=== PATIENT | male | born 1940 | race Caucasian/White ===

== ENCOUNTER → 2020-04-01 | Outpatient (CLI) | payer OTHER ==
[~2020-04-01] MED LIST: APAP650 PO; ASPIR 8181 MG PO; ATIVAN1 MG PO; AZITHROMYCIN500 M3 IVPB; CARDIZEM30 MG PO; COLACE100 MG PO; GABAPENTIN 100100 MG PO; GLUCOTROL XL10 MG PO; GLUCOTROL5 MG PO; HYDROCODONE-APA1 TA1 PO; LASIX 40 MG TAB40 M2 PO; LEVAQUIN 500 M500 M2 PO; LOPRESSOR25 PO; PRADAXA150 MG PO; PROAIR HFA8.5 GM INH; RESTORIL15 MG PO; RESTORIL30 MG PO; SIMVASTATIN40 MG PO; SOLU-MEDRO125 MG/24 INJECTION; TOPROL XL25 MG PO; TORADOL 10 MG T10 MG PO; ZANTAC 150MG T150 MG PO
== END ==
LOC: SJCVC 12:56
PROVIDERS: ATTEND Nuclear Medicine Nuclear Cardiology
DX: I71.4 Abdominal aortic aneurysm, without rupture (principal); I48.91 Unspecified atrial fibrillation; I10 Essential (primary) hypertension; E11.9 Type 2 diabetes mellitus without complications; C4A.72 Merkel cell carcinoma of left lower limb, including hip; I25.10 Atherosclerotic heart disease of native coronary artery without angina pectoris; Z95.0 Presence of cardiac pacemaker; Z95.5 Presence of coronary angioplasty implant and graft; Z72.0 Tobacco use; Z79.899 Other long term (current) drug therapy

== ENCOUNTER → 2020-04-09 | Outpatient (CLI) | payer OTHER ==
[~2020-04-09] VITALS: Ht 170.2 cm; Wt 79.0 kg
[~2020-04-09] MED LIST changes: +ATIVAN1 M1 PO; -ATIVAN1 MG PO; +BACLOFEN 10MG T10 MG PO; +BENADRYL25 MG PO; +EFUDEX40 GM TOP; +HUMALOG100 UNIT/1 SUBQ; +LEVEMIR100 UNIT/1 SUBQ; +LIPITOR40 MG PO; +LISINOPRIL10 MG PO; +MUPIROCIN22 GM NARES; +ONE-DAILY MULT1 EAC1 PO; +PREDNISONE 20 M20 MG PO; +PROTONIX40 M2 PO; +SEROQUEL 100 M100 M1 PO; +TRAMADOL 50 MG50 MG PO; +WARFARIN SODIUM3 MG PO; +WARFARIN SODIUM6 MG PO
[2020-04-09 08:31] VITALS: BP 131/78
[2020-04-09 08:41] LABS: HEMATOCRIT 55.2 % (42.0-52.0); HEMOGLOBIN 18.2 gm/dL (14.0-18.0); MCH 32.5 pg (26.0-34.0); MCV 98.5 fL (80.0-100.0); RBC 5.6 mil/uL (4.50-6.00); RDW 15.1 % (10.5-14.5); WBC 8.4 thou/uL (4.0-11.0)
[2020-04-09 08:53] LABS: CALCIUM 9.7 mg/dL (8.5-10.1); CREATININE 1.4 mg/dL (0.7-1.3); POTASSIUM 4.9 mmol/L (3.5-5.1)
[2020-04-09 09:18] LABS: INR 1.2; PROTIME 11.8 Seconds (9.3-11.4)
[2020-04-09 09:32] LABS: ABSOLUTE NEUTROPHILS 5.1 thou/uL (1.4-8.2); BASOPHILS 0.7 % (0.0-2.0); EOSINOPHILS 1.8 % (0.0-3.0); HEMATOCRIT 53.9 % (42.0-52.0); HEMOGLOBIN 18.1 gm/dL (14.0-18.0); LYMPHOCYTES 26.7 % (24.0-44.0); MCH 32.8 pg (26.0-34.0); MCHC 33.6 g/dL (28.0-37.0); MCV 97.7 fL (80.0-100.0); MONOCYTES 6.8 % (1.0-8.0); PLATELET COUNT 143 thou/uL (150-400); RBC 5.52 mil/uL (4.50-6.00); RDW 15.3 % (10.5-14.5); WBC 7.9 thou/uL (4.0-11.0)
[2020-04-09 09:59] LABS: ALBUMIN 3.6 g/dL (3.4-5.0); CALCIUM 9.5 mg/dL (8.5-10.1); CREATININE 1.5 mg/dL (0.7-1.3); POTASSIUM 5.1 mmol/L (3.5-5.1); TOTAL BILIRUBIN 0.9 mg/dL (0.2-1.0); TOTAL PROTEIN 7.4 g/dL (6.4-8.2)
[2020-04-09 16:20] LABS: URINE BILIRUBIN NEGATIVE (Negative); URINE BLOOD NEGATIVE (Negative); URINE CLARITY CLEAR; URINE COLOR YELLOW; URINE GLUCOSE-RANDOM* NEGATIVE (Negative); URINE KETONES NEGATIVE (Negative); URINE LEUKOCYTES-REFLEX NEGATIVE (Negative); URINE NITRITE-REFLEX NEGATIVE (Negative); URINE PROTEIN (DIPSTICK) NEGATIVE (Negative); URINE UROBILINOGEN 0.2 E.U./dl (0.2-1.0)
[2020-04-10 03:06] LABS: GLYCOHEMOGLOBIN (HGB A1C) 5.8 % (4.8-5.6)
--- NOTE | 2020-04-17 11:22 | EKG ---
[facility] [place] [address] [address] [place] [address] ELECTROCARDIOGRAM REPORT Name: JAYSON PATEL Room #: [facility]#: [id number] Admission: 04/09/20 Attend Phys: Zaki Kay MD Discharge: Date of : 39 Report #: [id number] THIS REPORT FOR: cc: Vidal Velez James DO Santiago, Patrick MD [facility] ~ THIS REPORT FOR: //name// [facility] Test Date: 2020-04-09 Test Time: 08:59:39 Pat Name: JAYSON PATEL Department: Room: Gender: Chronic Disease Epidemiologist: [facility] : 1940 Requested By: Giorgio Win Order Number: [id number] : Inocencio Ruggiero Measurements Intervals [place] Rate: 82 P: FL: QRS: -51 QRSD: 135 T: 119 QT: 463 QTc: 541 Interpretive Statements Atrial flutter Nonspecific IVCD with LAD Baseline wander in lead(s) II,III,aVF,V3,V5 Compared to ECG 05/18/2014 08:12:45 Intraventricular conduction delay now present ST (T wave) deviation now present Sinus rhythm no longer present AV dual-paced complex(es) or rhythm no longer present Electronically Signed On 04-09-2020 9:04:01 DIRECTOR OF QUALITY by Inocencio Ruggiero [email or web address] <ELECTRONICALLY SIGNED> By: Inocencio Ruggiero MD, [facility] 04/09/20903 8 8 Inocencio Ruggiero MD, [facility] /EPI
== END | disposition home or self-care (01) ==
LOC: CATH 07:41
PROVIDERS: Physician Assistant; Surgery Vascular Surgery; ATTEND Nuclear Medicine Nuclear Cardiology
DX: I71.4 Abdominal aortic aneurysm, without rupture (principal); I70.1 Atherosclerosis of renal artery; I11.0 Hypertensive heart disease with heart failure; I50.9 Heart failure, unspecified; I48.91 Unspecified atrial fibrillation; I42.9 Cardiomyopathy, unspecified; E11.9 Type 2 diabetes mellitus without complications; J44.9 Chronic obstructive pulmonary disease, unspecified; I25.10 Atherosclerotic heart disease of native coronary artery without angina pectoris; Z98.890 Other specified postprocedural states; Z79.899 Other long term (current) drug therapy; Z95.0 Presence of cardiac pacemaker; Z79.4 Long term (current) use of insulin; Z79.82 Long term (current) use of aspirin; Z79.01 Long term (current) use of anticoagulants; Z82.49 Family history of ischemic heart disease and other diseases of the circulatory system

== ENCOUNTER 2020-04-14 06:21 | Inpatient (IN) | payer OTHER ==
[~2020-04-14] VITALS: Ht 170.2 cm; Wt 76.2 kg
--- NOTE | ~2020-04-14 | O ---
[facility] [place] [address] [address] [place] [address] OPERATIVE REPORT Name: JAYSON PATEL Willem Room #: 250-P ADM IN M.R.#: [id number] Admission: 04/14/20 Attend Phys: Giorgio Win MD Discharge: Date of : 39 Report #: [id number] THIS REPORT FOR: cc: Vidal Velez James DO Forman,Giorgio Powers MD ~ DATE OF SERVICE: 04/14/2020 PREOPERATIVE DIAGNOSIS: Abdominal aortic aneurysm. POSTOPERATIVE DIAGNOSIS: Abdominal aortic aneurysm. OPERATION: Stent graft implant for treatment of infrarenal abdominal aortic aneurysm with intraoperative arteriograms. SURGEON: Giorgio Win MD. RADIOLOGIST: Dr. Zaki Kay. BONDERIZER: DAVID Mays. ANESTHESIA: General. INDICATIONS: The patient is an 79-year-old with an infrarenal abdominal aortic aneurysm that is 5 cm in size. The patient has atherosclerotic peripheral vascular disease as well. FINDINGS AND TECHNIQUE: After general anesthesia was established, incisions were made in both groins to expose the common deep and superficial femoral arteries. The femoral arteries were particularly atherosclerotic and calcified. On the right side, a pursestring was placed; and on the left side, a more traditional cutdown was employed. On each side, a needle was introduced into the femoral artery followed by guidewire and 6-Central African sheath was placed, long J wire was placed, and an exchange catheter was placed over the wire so that a Tavo wire can be placed. Over the Tavo wire, on the right side, a 12-Central African sheath was placed; and on the left side, through cutdown, a 16-Central African sheath was placed. Through the left side, a 26 x 12 x 18 main body component was placed. Through the right side, the renal arteries were accessed to better locate the place to position the graft. Renal arteries were identified angiographically and a guiding catheter was placed in the renal artery orifice. The main body was deployed and the contralateral gate was cannulated. A pigtail catheter was placed and the spin technique was used to ascertain good position [facility] [address] [place] [address] OPERATIVE REPORT Name: JAYSON PATEL Room #: 250-[facility] IN M.R.#: [id number] Admission: 04/14/20 Attend Phys: Giorgio Win MD Discharge: Date of : 39 Report #: [id number] in the contralateral gate. A retrograde arteriogram was taken through the sheath on the right side with the pigtail in place so that we could measure the distance to the hypogastric artery. A 16 x 11 limb was chosen and deployed in the contralateral gate just above the right hypogastric orifice. On the left side, the hypogastric was occluded and a 10 x 7 extension limb was placed for satisfactory coverage into the left iliac system. When all of the devices were placed, the compliant balloon was used to fully deploy the main body and set the proximal active fixation. The grafts were dilated throughout their length, particularly in the contralateral gate. When all of the grafts had been fully deployed and ironed out, a pigtail catheter was replaced and an arteriogram was taken. This showed good position of the graft below the renal arteries and no evidence of endoleak. Satisfied that the graft was in good position, dilators were placed over guidewires and into the sheaths and then the sheaths and then the guidewires themselves were removed; and on each side, the arteriotomies were closed with Prolene. Flow was reestablished and good pulses were ascertained. It should be mentioned that 10,000 units of heparin were given at the outset of the case. 1000 additional units were given at an hour's interval and then protamine was given to reverse the heparin at the end of the case. The patient tolerated the procedure well and was taken to the recovery area in good condition. All counts reported as correct. By: 1737 1803 Giorgio Win MD /nt
[2020-04-14 08:28] VITALS: BP 126/68
[2020-04-14 09:30] LABS: PROTIME 10.7 Seconds (9.3-11.4)
[2020-04-14 13:13] VITALS: BP 122/69
--- NOTE | 2020-04-14 13:50 | NUR ---
1310-RECEIVED PT FROM PACU VIA BED.PT AWAKE,APPROP.DENIES PAIN, JUST STATES BURNING BOTH GROINS.SITES SOFT BILAT, NO BLEEDING OR HEMATOMAS. LG AMT OLD BRUISING RT GROIN. GOOD DISTAL PULSES ARE PALP & MARKED.FEET WARM,TOES COOL.-VW 1330-DTR IN TO SEE FOR BRIEF VISIT, THEN LEFT FOR HOME.PT WATCHING TV. TAKING ICECHIPS W/O PROBLEMS. DOES NOT WANT ANYTHING ELSE AT THIS TIME.--VW
[2020-04-14 15:59] VITALS: BP 119/60
[2020-04-14 16:02] VITALS: BP 116/57
[2020-04-14 17:46] LABS: HEMATOCRIT 45.9 % (42.0-52.0); HEMOGLOBIN 15.3 gm/dL (14.0-18.0); MCH 32.3 pg (26.0-34.0); MCHC 33.3 g/dL (28.0-37.0); MCV 97.1 fL (80.0-100.0); RBC 4.73 mil/uL (4.50-6.00); RDW 14.7 % (10.5-14.5); WBC 13.8 thou/uL (4.0-11.0)
[2020-04-14 17:54] LABS: CALCIUM 8.7 mg/dL (8.5-10.1); CREATININE 1.3 mg/dL (0.7-1.3); POTASSIUM 4.6 mmol/L (3.5-5.1)
--- NOTE | 2020-04-15 04:42 | NUR ---
ASSUMED CARE OF PATIENT AT 1900. VSS, AFEBRILE. GROIN SITES C/D/I. NO S/S OF DISTRESS. CALLS OUT APPROPRIATELY. DOES NOT SLEEP MUCH. PROGRESSING TOWARDS POC GOALS
[2020-04-15 04:58] LABS: HEMATOCRIT 43.7 % (42.0-52.0); HEMOGLOBIN 14.4 gm/dL (14.0-18.0); MCH 31.9 pg (26.0-34.0); MCV 96.6 fL (80.0-100.0); RBC 4.53 mil/uL (4.50-6.00); RDW 14.9 % (10.5-14.5); WBC 12.4 thou/uL (4.0-11.0)
[2020-04-15 05:10] LABS: CALCIUM 8.3 mg/dL (8.5-10.1); CREATININE 1.2 mg/dL (0.7-1.3); POTASSIUM 4.4 mmol/L (3.5-5.1)
--- NOTE | 2020-04-15 10:40 | NUR ---
cm spk w/pt's , nilesh to completed initial assessment and intro to cm role. pt lives at home w/spouse in [facility] in [place]. pt has "home care worker" 4hr/day 3x/week. pt has 2 dtr, w/one that lives in [place], that are very supportive and assist w/errand and such as needed. cm to cont to follow.
--- NOTE | 2020-04-15 11:34 | NUR ---
PT IS PROGRESSING TOWARDS DISCHARGE, PER DAVID ROQUE PT IS OK'D TO GO HOME ONCE SEEN AMBULATING/URINATING S/P [facility] REMOVAL/ WELL TOLERATING PO. PT WAS AMBULATORY TO THE BATHROOM IN ROOM WITH RN MINIMAL ASSISTANCE/SET-UP. PT ALSO HAD A BM/URINATED NORMALLY S/P [facility] CATH REMOVAL. PT HAD A 8OZ OF GLUCERNA WELL 1/3 OF WAFFLE FROM BREAKFAST. WAS ABLE TO TOLERATE, NO COMPLAINTS OF N/V/D WILL COMMUNICATE TO DAVID ROQUE REGARDING THESE FINDINGS AND WILL MOVE FORTH TOWARDS DISCHARGE. PT IS PROGRESSING AT THIS TIME. VS ARE STABLE NO COMPLAINTS OF PAIN
[2020-04-15 13:52] VITALS: BP 116/57
== END 2020-04-15 14:10 | disposition home or self-care (01) | DRG 269 ==
LOC: TBA 06:21 → PRE 09:30 → ICU 13:15
PROVIDERS: Physician Assistant; ADMIT Surgery Vascular Surgery; ATTEND Surgery Vascular Surgery
PROC: 04V03DZ Restriction of Abdominal Aorta with Intraluminal Device, Percutaneous Approach (ICD-10-PCS; principal; 2020-04-14)
PROC: B418YZZ Fluoroscopy of Bilateral Renal Arteries using Other Contrast (ICD-10-PCS; principal; 2020-04-14)
DX: I71.4 Abdominal aortic aneurysm, without rupture (principal); I25.10 Atherosclerotic heart disease of native coronary artery without angina pectoris; N18.9 Chronic kidney disease, unspecified; E78.5 Hyperlipidemia, unspecified; I48.91 Unspecified atrial fibrillation; E11.22 Type 2 diabetes mellitus with diabetic chronic kidney disease; Z20.828 Contact with and (suspected) exposure to other viral communicable diseases; I12.9 Hypertensive chronic kidney disease with stage 1 through stage 4 chronic kidney disease, or unspecified chronic kidney disease; F17.210 Nicotine dependence, cigarettes, uncomplicated; C4A.72 Merkel cell carcinoma of left lower limb, including hip; Z95.5 Presence of coronary angioplasty implant and graft; Z95.0 Presence of cardiac pacemaker; Z91.041 Radiographic dye allergy status; Z79.899 Other long term (current) drug therapy; Z71.6 Tobacco abuse counseling
CPT/HCPCS: 10078; 47375; 50010; 50101; 50386; 50455; 51762; 52287; 54118; 56524; 56526; 56527; 56531; 56668; 56760; 57093; 57853; 57854; 57996; 58401; 58403; 58404; 62110; 62900; 65020; 65040; 70005

== ENCOUNTER → 2020-06-03 | Outpatient (CLI) | payer OTHER | LOC: SJCVC 08:29 | PROVIDERS: ATTEND Nuclear Medicine Nuclear Cardiology | DX: I11.9 Hypertensive heart disease without heart failure (principal); I71.4 Abdominal aortic aneurysm, without rupture; I25.10 Atherosclerotic heart disease of native coronary artery without angina pectoris; I48.91 Unspecified atrial fibrillation; E11.9 Type 2 diabetes mellitus without complications; F17.200 Nicotine dependence, unspecified, uncomplicated; Z95.5 Presence of coronary angioplasty implant and graft; Z95.0 Presence of cardiac pacemaker; Z72.0 Tobacco use; Z79.84 Long term (current) use of oral hypoglycemic drugs; Z79.899 Other long term (current) drug therapy; Z88.8 Allergy status to other drugs, medicaments and biological substances ==

== ENCOUNTER 2020-08-05 14:48 | Inpatient (IN) | payer OTHER ==
[2020-08-05] VITALS (63 sets, daily range): BP systolic 60–155; BP diastolic 37–80
[~2020-08-05] VITALS: Ht 182.9 cm; Wt 87.4 kg
--- NOTE | ~2020-08-05 | EEG ---
[facility] [place] [address] [place] [address] ELECTROENCEPHALOGRAM Name: JAYSON PATEL Room #: 240-P [facility] IN M.R.#: [id number] Admission: 08/05/20 Attend Phys: Sekou Hobbs MD Discharge: Date of : 39 Report #: [id number] THIS REPORT FOR: //name// DATE OF SERVICE: 08/11/2020 This patient is being evaluated for altered mental status. EEG was done by placing the electrode by standard 10-20 system of electrode placement. Both referential and sequential montages were used for recording. Background activity in this patient is a pretty disorganized and poorly formed. It appeared to be about 6 Hz and 15 microvolt. Photic stimulation is unremarkable. IMPRESSION: This is a severely abnormal EEG because it is disorganized and poorly formed. That is a nonspecific abnormality, which can occur with dementia, encephalopathy, effect of psychotropic medication, etc. Clinical correlation is recommended. By: 1324 1404 Steve Romeo MD /nt
--- NOTE | ~2020-08-05 | HC ---
[facility] [place] [address] CONSULTATION Name: AMANDAJAYSON Willem Room #: [facility]- ADM IN ..#: [id number] Admission: 08/05/20 Attend Phys: Sekou Hobbs MD Discharge: Date of : 39 Report #: [id number] THIS REPORT FOR: cc: Vidal Velez James DO Khosla,Steve Sandoval MD ~ DATE OF SERVICE: 08/11/2020 HISTORY OF PRESENT ILLNESS: This is an 79-year-old male patient who is unable to provide any history. The patient's eyes are open. He is on a vent. He just does not provide any history at all. That makes the evaluation very difficult. I reviewed the records in the computer and I had talked to the day nurse in this patient. It looks like this patient has multiple metabolic problems including a hypoperfusion to the brain because of hypotension. Multiple consultants are involved in this patient's care. He was transported here from [facility]. The patient apparently went to [facility] with altered mental status and hypotension. He recently had a hip surgery. Records indicate that in April, he had aortic aneurysm surgery. One of the records indicate that he has a pacemaker put in. I do not know if that is compatible with MRI or not. He appeared to be in septic shock. This patient has multiple other systemic problems, which include hypoxemia. He is on heparin. He has atrial fibrillation as well as DVT. REVIEW OF SYSTEMS: A 14-point review of system was carried out and looks like this patient has numerous medical issues. It looks like he has history of diabetes, hypertension, atrial fibrillation, COPD, AAA repair, history of GI bleed, skin cancer, colonoscopy, depression, TIA. He also has multiple issues going on at this time and he is not waking up. This was a relevant 14-point review of system. PAST MEDICAL HISTORY: Positive for hip surgery and AAA repair. FAMILY HISTORY: Unavailable, but the best I can tell from the record, it does not look like there is a family history of early strokes. SOCIAL HISTORY: According to the record, he has a history of smoking, but does not drink alcohol. PHYSICAL EXAMINATION: Indicates he opens his eyes when I asked him to close his eyes, he does not do that. When asked him to move his eyes in multiple directions, he does not do that. He does not appear to have meningeal sign, it looks like one time he moved his toes when I asked him to do that, but I am not certain. Rest of the examination was attempted, but it is almost impossible. His blood pressure is 123/58, pulse rate is 73, temperature is 98. [facility] [address] [place] [address] CONSULTATION Name: JAYSON PATEL Room #: 240-P [facility] IN ..#: [id number] Admission: 08/05/20 Attend Phys: Sekou Hobbs MD Discharge: Date of : 39 Report #: [id number] LABORATORY DATA: He did have a CT scan of the head done and that was done to make sure there is no bleeding because this patient was on heparin. There is no bleeding there. IMPRESSION: This patient appeared to have encephalopathy because of multiple problems. Whether he also had a stroke in addition to that, it is difficult to ___. We need to find out if his pacemaker is compatible with MRI and if it is, then MRI will be the best test to do on him. If not, we can continue to support and I will look at the EEG and discuss the patient with you tomorrow. Thank you very much for this referral. By: 1959 0006 Steve Romeo MD /nt
[2020-08-05 17:31] LABS: BE(vivo) -3.7 mmol/L (-2 to +3); HCO3 23.8 mmol/L (22.0-26.0); PCO2 54.1 mmHg (35.0-45.0); PO2 103.7 mmHg (80.0-100.0); sO2 96.9 % (92.0-98.0)
[2020-08-05 17:32] LABS: pH 7.262 (7.360-7.450)
--- NOTE | 2020-08-05 18:17 | NUR ---
5FRTL IJ PLACED RT SIDE, CXR REVEALED THE TIP AT THE CAJ.
[2020-08-05 18:29] LABS: ABSOLUTE NEUTROPHILS 8.5 thou/uL (1.4-8.2); BASOPHILS 0.3 % (0.0-2.0); EOSINOPHILS 0.1 % (0.0-3.0); HEMATOCRIT 36.6 % (42.0-52.0); HEMOGLOBIN 11.8 gm/dL (14.0-18.0); LYMPHOCYTES 13.5 % (24.0-44.0); MCH 32.8 pg (26.0-34.0); MCHC 32.2 g/dL (28.0-37.0); MCV 101.8 fL (80.0-100.0); MONOCYTES 6.7 % (1.0-8.0); PLATELET COUNT 243 thou/uL (150-400); POLYS 79.4 % (36.0-66.0); RDW 18.8 % (10.5-14.5); WBC 10.7 thou/uL (4.0-11.0)
[2020-08-05 18:37] LABS: CREATININE 1.6 mg/dL (0.7-1.3); POTASSIUM 3.4 mmol/L (3.5-5.1)
[2020-08-05 18:42] LABS: ALBUMIN 2.4 g/dL (3.4-5.0); TOTAL BILIRUBIN 1.5 mg/dL (0.2-1.0); TOTAL PROTEIN 5.9 g/dL (6.4-8.2)
[2020-08-05 19:08] LABS: APTT 56.5 Seconds (24.5-32.8); INR 1.87; PROTIME 19.8 Seconds (9.3-11.4)
--- NOTE | 2020-08-05 19:23 | 2DMMODE ---
[facility] [place] [address] [place] [address] 2 D/M-MODE ECHOCARDIOGRAM Name: JAYSON PATEL Room #: 240-P ADM IN M.R.#: [id number] Admission: 08/05/20 Attend Phys: Sekou Hobbs MD Discharge: Date of : 39 Report #: [id number] THIS REPORT FOR: cc: Vidal Velez James DO Lammoglia, Francisco J. MD ~ APPROVED REPORT Study performed: 08/05/2020 18:40:17 EXAM: Limited 2D, Doppler, and color-flow Echocardiogram Patient Location: ICU Room #: 240 Status: on-call BSA: 1.99 HR: 83 bpm BP: 116/63 mmHg Other Information Study Quality: Technically Difficult Technically limited study due to lung disease, inability to position patient. Indications COPD Atrial Fibrillation Pacemaker CAD Elevated Troponin Shock, hip repair 07/01/2020 2D Dimensions RVDd: 37.59 mm IVSd: 11.45 (7-11mm) LVDd: 40.71 mm PWd: 10.64 (7-11mm) LVDs: 30.48 (25-40mm) IVC: 17.00 mm Aortic Valve AoV Peak Get[place]w.: 1.59 m/s AO Peak Gr.: 10.11 mmHg Tricuspid Valve TR Peak Getachew.: 3.27 m/s RAP Estimate: 10.00 mmHg [facility] [address] [place] [address] 2 D/M-MODE ECHOCARDIOGRAM Name: AMANDAJAYSON Willem Room #: 240-P ADM IN .R.#: [id number] Admission: 08/05/20 Attend Phys: Myke Small Discharge: Date of : 39 Report #: [id number] Peak Gr.: 42.82 mmHg PA Pressure: 53.00 mmHg Left Ventricle The left ventricle is normal size. Borderline concentric left ventricular hypertrophy. The left ventricular systolic function is normal. The left ventricular ejection fraction is within the normal range. LVEF is 55-60%. Right Ventricle Right ventricle is at the upper limits of normal. Right ventricle is hypokinetic. Aortic Valve The aortic valve is normal in structure. No aortic regurgitation is present. There is no aortic valvular stenosis. Mitral Valve The mitral valve is normal in structure. There is no mitral valve regurgitation noted. Tricuspid Valve The tricuspid valve is normal in structure. Mild tricuspid regurgitation. PAP is estimated at 53 mmHg. Pulmonic Valve Pulmonic valve is not well visualized. Great Vessels The aortic root is normal in size. IVC is normal in size and collapses <50% with inspiration. Pericardium There is no pericardial effusion. <Conclusion> The left ventricle is normal size. LVEF is 55-60%. Right ventricle is at the upper limits of normal. Right ventricle is hypokinetic. The aortic valve is normal in structure. The mitral valve is normal in structure. Pulmonic valve is not well visualized. [facility] [place] [address] 2 D/M-MODE ECHOCARDIOGRAM Name: JAYSON PATEL Room #: 240-P ADM IN ..#: [id number] Admission: 08/05/20 Attend Phys: Myke Small Discharge: Date of : 39 Report #: [id number] The aortic root is normal in size. There is no pericardial effusion. <ELECTRONICALLY SIGNED> By: Ismael Arredondo MD 08/05/201921 21 21 Ismael Arredondo MD /INF
[2020-08-05 19:34] LABS: BE(vivo) -2.4 mmol/L (-2 to +3); HCO3 24.7 mmol/L (22.0-26.0); pH 7.294 (7.360-7.450); sO2 79.9 % (92.0-98.0)
[2020-08-05 19:55] LABS: URINE BILIRUBIN NEGATIVE (Negative); URINE BLOOD 1+ (Negative); URINE CLARITY CLEAR; URINE COLOR YELLOW; URINE GLUCOSE-RANDOM* NEGATIVE (Negative); URINE KETONES NEGATIVE (Negative); URINE LEUKOCYTES-REFLEX NEGATIVE (Negative); URINE NITRITE-REFLEX NEGATIVE (Negative); URINE PROTEIN (DIPSTICK) NEGATIVE (Negative); URINE SPECIFIC GRAVITY 1.025 (1.005-1.035)
[2020-08-05 20:06] LABS: HYALINE CASTS 4-10 Moderate /LPF (None Seen); MUCUS 4-6 Moderate strn/LPF (None Seen); SQUAMOUS 4-10 Moderate /LPF (0-3)
--- NOTE | 2020-08-05 20:07 | NUR ---
1530 NOTIIED ISIDRO OF DIRECT ADMIT. CARDIOLOGY PAIGED 1540. RECIEVED CALL FROM EMS 1635 PT BECOMING LESS RESPONSIVE AND ARE 10 MINS AWAY. ARRIVED TO FLOOR 1700. ORIENTED TO SELF AND PLACE, FOLLOWING COMMANDS.. REQUIRING PRESSORS. ISIDRO BOOGIE, AND CARDIOLOGY NOTIFIED.. LEVO, DOPAMINE, AND HEPARIN GTT RESUMED. PT BECIMING INCREASINGLY OBTUNDED AND LETHARGIC. NEW ABG OBTAINED. ISIDRO NOTIFIED. PREPARING TO INTUBATE.
[2020-08-05 20:14] LABS: CRYSTALS None Seen /LPF (None Seen)
[2020-08-05 20:15] LABS: URINE RBC 0-2 Rare /HPF (0-2); URINE WBC-REFLEX 0-5 Rare /HPF (0-5)
[2020-08-05 23:07] LABS: BE(vivo) -2.7 mmol/L (-2 to +3); HCO3 23.5 mmol/L (22.0-26.0); PCO2 46.3 mmHg (35.0-45.0); PO2 264.2 mmHg (80.0-100.0); pH 7.324 (7.360-7.450); sO2 99.6 % (92.0-98.0)
[2020-08-06] VITALS (45 sets, daily range): BP systolic 79–126; BP diastolic 41–71
[2020-08-06] MEDS ORDERED: LANTUS SUBQ (01:38)
[2020-08-06] MEDS ORDERED: PROAIR HFA8.5 GM INH (01:43)
[2020-08-06] MEDS ORDERED: FLOMAX0.4 MG PO (01:45)
[2020-08-06 03:45] LABS: ABSOLUTE NEUTROPHILS 7.9 thou/uL (1.4-8.2); BASOPHILS 0.3 % (0.0-2.0); EOSINOPHILS 0.3 % (0.0-3.0); HEMATOCRIT 37.1 % (42.0-52.0); HEMOGLOBIN 11.8 gm/dL (14.0-18.0); LYMPHOCYTES 20.1 % (24.0-44.0); MCH 32.4 pg (26.0-34.0); MCV 101.4 fL (80.0-100.0); MONOCYTES 6.5 % (1.0-8.0); PLATELET COUNT 237 thou/uL (150-400); POLYS 72.8 % (36.0-66.0); RBC 3.65 mil/uL (4.50-6.00); RDW 18.3 % (10.5-14.5); WBC 10.9 thou/uL (4.0-11.0)
[2020-08-06 04:01] LABS: CALCIUM 7.2 mg/dL (8.5-10.1); CREATININE 1.2 mg/dL (0.7-1.3)
[2020-08-06 04:17] LABS: POTASSIUM 2.9 mmol/L (3.5-5.1)
--- NOTE | 2020-08-06 06:11 | NUR ---
This RN to bedside at 1900. Patient intubated shortly after shift change. Head and chest CT done. Inserted CVP and monitoring art line. Caleb track in place. Discussed in depth plan with Dr. Burks and Dr. Arredondo. Plan to titrate dopamine, dobutamine, phenelphyrine and levophed to achieve Flotrac goals. When directly asking Dr. Burks for medication parameters to titrate "was told to communicate often and will be directed on how to titrate". Discussed with Dr. Burks hourly on patient status and flotrac numbers. Remains sedated on the venilator. Restraints in place.
--- NOTE | 2020-08-06 07:03 | EKG ---
[address] [address] ELECTROCARDIOGRAM REPORT Name: JAYSON PATEL Room #: 240-P ADM IN .R.#: [id number] Admission: 08/05/20 Attend Phys: Sekou Hobbs MD Discharge: Date of : 39 Report #: [id number] [facility] Test Date: 2020-08-05 Test Time: 18:00:04 Pat Name: JAYSON PATEL Department: Room: 240 P Gender: M Care Advocate: FSCHWALBE : 1940 Requested By: Devaughn Dowell Order Number: [id number] MD: Inocencio Ruggiero Measurements Intervals [place] Rate: 73 P: 34 [place]: 189 QRS: -46 QRSD: 153 T: -86 QT: 486 QTc: 536 Interpretive Statements Sinus rhythm Right bundle branch block Inferior infarct, old Compared to ECG 04/09/2020 08:59:39 Right bundle-branch block now present Myocardial infarct finding now present Atrial flutter no longer present Intraventricular conduction delay no longer present Electronically Signed On 08-06-2020 7:03:43 CDT by Inocencio Ruggiero [email or web address] <ELECTRONICALLY SIGNED> By: Inocencio Ruggiero MD, FACC 08/06/20 0703 1800 1800 Inocencio Ruggiero MD, [facility] /EPI
--- NOTE | 2020-08-06 08:10 | NUR ---
ASSUMMED CARE OF THIS PATIENT FROM THE NIGHT NURSE, RICA RODRIGUEZ. PATIENT REMAINS INTUBATED ON PROPOFOL AND FENTANYL FOR VENT MANAGEMENT AND MULTIPLE PRESSOR FOR HYPOTENSION, PLEASE REFER TO THE ICU VS FLOW SHEET. WILL CONTINUE TO MONITOR. HELIO KENDALL CALLED IN AND UPDATED ON THE PATIENT'S STATUS AT 0805.
[2020-08-06 08:13] LABS: MAGNESIUM 1.7 mg/dL (1.8-2.4)
--- NOTE | 2020-08-06 09:52 | NUR ---
chart review, discussed during am rounds. intubated, possible going for bronch today. will cont following as needed for dc needs. mass vs pe?
--- NOTE | 2020-08-06 10:21 | NUR ---
Nutrition: If/when appropriate, rec consider enteral nutrition within 24 hrs: Glucerna 1.2 to reach 65 mL/hr with current propofol demands
--- NOTE | 2020-08-06 12:06 | NUR ---
ADVANCE DIRECTIVE CONSULT [id number]: THIS ACCESS MANAGER WAS UNABLE TO COMPLETE THIS CONSULT WITH THE PATIENT EXPRESSING HIS DESIRES. THE CONSULT WAS RECEIVED ON 08/05/20 @1801 HOURS. THE PATIENT WAS INTUBATED LATER THAT NIGHT. DR. Loan FELIX SHARED DURING ICU ROUNDS TODAY, THAT HE SPOKE TO EACH OF THE TWO DAUGHTERS EXTENSIVELY LATE LAST NIGHT BEFORE THE PATIENT WAS INTUBATED. HE SAID BOTH DAUGHTERS WANTED TO DO EVERYTHING WE COULD.
--- NOTE | 2020-08-06 13:15 | NUR ---
VIDEO CONFERENCE WITH MALATHI AND FAMILY.
--- NOTE | 2020-08-06 15:45 | NUR ---
CALLED PATIENT'S DAUGHTER FAIZA TO UPDATE HER BROTHER. DAUGHTER STATED THAT THEY DID NOT WANT COMPRESSIONS IF HIS HEART STOPPED TO JUST LET HIM GO. DR BOOGIE NOTIFIED AND WILL PLACE NO CODE ORDER.
--- NOTE | 2020-08-06 16:30 | NUR ---
SEDATION VACATION FROM 1555 TO 1630. PATIENT INITIALLY SEDATED BUT AWOKE AFTER 20 MINS WITH INCREASE IN HEART RATE, MOVING UPPER EXTERMITIES AND RT LEG SPONTANOUSLY BUT WILL NOT FOLLOW ANY COMMANDS. EYES OPEN, COUGHING. REASSURANCE GIVEN. PATIENT PLACED BACK ON THE PROPOFOL DRIP. SUCTIONED MODERATE AMT OF THICK YELLOW RENTERIA SECRETIONS. WILL CONTINUE TO MONITOR.
--- NOTE | 2020-08-06 17:10 | NUR ---
DAUGHTER FAIZA CALLED IN AND UPDATED ON HER FATHER'S STATUS.
[2020-08-06 18:09] LABS: CALCIUM 7.6 mg/dL (8.5-10.1); CREATININE 1.2 mg/dL (0.7-1.3); POTASSIUM 3.5 mmol/L (3.5-5.1)
--- NOTE | 2020-08-06 19:00 | NUR ---
PATIENT NOT PROGRESSING TOWARDS OUTCOME GOALS. FLOTRACT IN PLACE WITH CI AT LEASE 2 OR GREATER TODAY. SVV REMAINS HIGH EVEN AFTER NS BOLUS GIVEN. REMAINS ON LEVOPHED, NEOSYNEPHRINE, DOBUTAMINE AND AMIODARONE DRIPS TITRATED FOR BP. WILL CONTINUE TO MONITOR. URINE OUTPUT 20 TO 30 ML/HR. DR FELIX AWARE.
[2020-08-07] VITALS: BP 104/66
[2020-08-07 03:56] LABS: BE(vivo) -9.3 mmol/L (-2 to +3); HCO3 16.7 mmol/L (22.0-26.0); PCO2 36.6 mmHg (35.0-45.0); PO2 168.7 mmHg (80.0-100.0); pH 7.277 (7.360-7.450); sO2 98.9 % (92.0-98.0)
[2020-08-07 04:00] VITALS: BP 88/61
[2020-08-07 05:07] LABS: ABSOLUTE NEUTROPHILS 8.9 thou/uL (1.4-8.2); BASOPHILS 0.5 % (0.0-2.0); EOSINOPHILS 0.7 % (0.0-3.0); HEMATOCRIT 36.7 % (42.0-52.0); HEMOGLOBIN 11.7 gm/dL (14.0-18.0); MCH 32.6 pg (26.0-34.0); MCV 101.9 fL (80.0-100.0); MONOCYTES 5.2 % (1.0-8.0); PLATELET COUNT 228 thou/uL (150-400); POLYS 88.6 % (36.0-66.0); RDW 19.2 % (10.5-14.5); WBC 10.1 thou/uL (4.0-11.0)
[2020-08-07 05:25] LABS: CALCIUM 7.7 mg/dL (8.5-10.1); CREATININE 1.1 mg/dL (0.7-1.3); POTASSIUM 3.7 mmol/L (3.5-5.1)
[2020-08-07 06:34] VITALS: BP 92/48
[2020-08-07 08:00] VITALS: BP 109/65
[2020-08-07 12:00] VITALS: BP 89/57
[2020-08-07 13:24] LABS: BE(vivo) -8.7 mmol/L (-2 to +3); PCO2 35.8 mmHg (35.0-45.0); sO2 97.1 % (92.0-98.0)
[2020-08-07 13:28] LABS: pH 7.294 (7.360-7.450)
--- NOTE | 2020-08-07 15:00 | NUR ---
Claudia Douglass present to see pt. updated on status. she face timed with her brother and sister so they had the opportunity to view and speak with their father.
[2020-08-07 20:01] VITALS: BP 101/60
[2020-08-07 20:11] LABS: CALCIUM 7.6 mg/dL (8.5-10.1); POTASSIUM 3.8 mmol/L (3.5-5.1)
[2020-08-08] VITALS (9 sets, daily range): BP systolic 85–115; BP diastolic 50–62
[2020-08-08 03:32] LABS: HEMATOCRIT 34.3 % (42.0-52.0); MCH 32.8 pg (26.0-34.0); MCHC 32.1 g/dL (28.0-37.0); MCV 102.1 fL (80.0-100.0); RBC 3.36 mil/uL (4.50-6.00); RDW 19.2 % (10.5-14.5)
[2020-08-08 03:46] LABS: CALCIUM 7.6 mg/dL (8.5-10.1); CREATININE 0.9 mg/dL (0.7-1.3); POTASSIUM 3.4 mmol/L (3.5-5.1)
[2020-08-08 11:20] LABS: BE(vivo) -9.9 mmol/L (-2 to +3); HCO3 15.7 mmol/L (22.0-26.0); PCO2 33.6 mmHg (35.0-45.0); PO2 139.9 mmHg (80.0-100.0); pH 7.287 (7.360-7.450); sO2 98.5 % (92.0-98.0)
--- NOTE | 2020-08-08 11:25 | NUR ---
New tube feed goal is glucerna 1.2 at 70ml/hr if tube feedings will be initiated.
[2020-08-08 11:38] LABS: CALCIUM 7.9 mg/dL (8.5-10.1); CREATININE 0.9 mg/dL (0.7-1.3); POTASSIUM 3.6 mmol/L (3.5-5.1)
--- NOTE | 2020-08-08 12:41 | NUR ---
discussed during los and unite rounds. remains on vent. no anticipated dc over the weekend. will cont following as needed for dc needs. bedside staff and MD have been speaking with family.
--- NOTE | 2020-08-08 20:26 | NUR ---
DAUGHTER FAIZA UPDATED VIA PHONE BY THIS RN AT THIS TIME. FAMILY WOULD LIKE UPDATED FROM PHYSICIANS TOMORROW.
[2020-08-09] VITALS (17 sets, daily range): BP systolic 78–103; BP diastolic 45–60
--- NOTE | 2020-08-09 07:32 | NUR ---
Patient maintaining MAP of 60, weaned off of pressers. Opens eyes to verbal commands. Caleb track remains in place. Patient progressing towards goals.
[2020-08-09 16:21] LABS: BE(vivo) -7.6 mmol/L (-2 to +3); HCO3 18.3 mmol/L (22.0-26.0); PCO2 38.4 mmHg (35.0-45.0); PO2 99.6 mmHg (80.0-100.0)
[2020-08-09 16:22] LABS: pH 7.296 (7.360-7.450)
[2020-08-09 16:27] LABS: HEMATOCRIT 31.9 % (42.0-52.0); HEMOGLOBIN 10.6 gm/dL (14.0-18.0); MCH 33.5 pg (26.0-34.0); MCHC 33.4 g/dL (28.0-37.0); MCV 100.4 fL (80.0-100.0); RBC 3.17 mil/uL (4.50-6.00); RDW 18.6 % (10.5-14.5)
[2020-08-09 16:42] LABS: CALCIUM 7.9 mg/dL (8.5-10.1); CREATININE 0.9 mg/dL (0.7-1.3); POTASSIUM 3.9 mmol/L (3.5-5.1)
--- NOTE | 2020-08-09 18:26 | NUR ---
PT REMAINS ON THE VENTILATOR. ACTIVELY TITRATING DOWN THE DOBUTAMINE PER DR. RABAGO'S INSTRUCTION. URINE OUTPUT EXCELLENT. WHEN SEDATION PLACED ON HOLD, PT OPENS EYES AND MOVES TOES INDEPENDENTLY BUT NO MOVEMENT ON COMMAND. PT SLOWLY PROGRESSING TOWARD GOALS.
[2020-08-10] VITALS (7 sets, daily range): BP systolic 110–156; BP diastolic 61–73
[2020-08-10 04:25] LABS: BE(vivo) -7.8 mmol/L (-2 to +3); HCO3 18.6 mmol/L (22.0-26.0); PCO2 41.3 mmHg (35.0-45.0); PO2 92.9 mmHg (80.0-100.0); sO2 96.1 % (92.0-98.0)
[2020-08-10 04:26] LABS: pH 7.272 (7.360-7.450)
[2020-08-10 04:48] LABS: HEMATOCRIT 33.8 % (42.0-52.0); HEMOGLOBIN 10.9 gm/dL (14.0-18.0); MCH 32.6 pg (26.0-34.0); MCHC 32.2 g/dL (28.0-37.0); RBC 3.34 mil/uL (4.50-6.00); RDW 18.6 % (10.5-14.5)
[2020-08-10 05:01] LABS: CREATININE 0.8 mg/dL (0.7-1.3); POTASSIUM 3.5 mmol/L (3.5-5.1)
--- NOTE | 2020-08-10 07:51 | NUR ---
ASSUMED CARE AT 1900. SLIGHT DECREASE IN DOBUTAMINE GTT AND TURNED VERSED OFF OVERNIGHT. ART LINE DOES NOT PULL BACK, AND IS LEAKING WHEN FLUSHED. WOUND PHOTO TAKEN OF OPEN AREA ON COCCYX. REMOVED RESTRAINTS AT 2340. NO OTHER CONCERNS, SHIFT REPORT GIVEN 0700.
--- NOTE | 2020-08-10 12:00 | NUR ---
titrated off dobutamine gtt and dc'd flow trac at 0900. son called to inquire regarding pt status, updated.
--- NOTE | 2020-08-10 12:00 | NUR ---
dc'd mar. not following commands at this time however face is reddened and has facial grimace, fentanyl restarted.
--- NOTE | 2020-08-10 18:30 | NUR ---
moving upper extremities spontaneously, slowly progressing. son inquired per phone, updated on pt status. pt not responsive enough to have a breathing trial.
[2020-08-11] VITALS (25 sets, daily range): BP systolic 96–144; BP diastolic 26–77
[2020-08-11 04:02] LABS: BE(vivo) -2.2 mmol/L (-2 to +3); HCO3 22.9 mmol/L (22.0-26.0); PCO2 40.6 mmHg (35.0-45.0); PO2 105.8 mmHg (80.0-100.0); pH 7.369 (7.360-7.450); sO2 97.7 % (92.0-98.0)
[2020-08-11 06:12] LABS: HEMATOCRIT 29.7 % (42.0-52.0); HEMOGLOBIN 9.7 gm/dL (14.0-18.0); MCH 32.7 pg (26.0-34.0); MCHC 32.8 g/dL (28.0-37.0); MCV 99.7 fL (80.0-100.0); RBC 2.97 mil/uL (4.50-6.00); RDW 18.3 % (10.5-14.5)
[2020-08-11 06:41] LABS: CALCIUM 8.2 mg/dL (8.5-10.1); CREATININE 0.9 mg/dL (0.7-1.3); MAGNESIUM 1.8 mg/dL (1.8-2.4); POTASSIUM 3.8 mmol/L (3.5-5.1)
--- NOTE | 2020-08-11 10:00 | NUR ---
Bailey- daughter inquired per phone this am regarding pt status. updated. Bailey arranged for zoom meeting for her mother to talk with pt. about 0930 am, they zoomed as long as they desired.
--- NOTE | 2020-08-11 11:27 | NUR ---
WOUND CONSULT; ANSSESSMENT OF THE SACRAL WOUND THAT MEASURES 2 X 2 X 0.1. BEEFY RED WOUND BED. NO S/S OF INFECTION. THE PATIENT IS ON A SPECIALTY SURFACE. RECOMMENDATION; APPLY A SACRAL FOAM DRESSING, M/W/F PRN *Q2H TURING AT A MINIMUM. DISCUAAED WITH RN
--- NOTE | 2020-08-11 11:38 | NUR ---
spoke with Dr. Ghosh regarding pt desating to 89%, Awilda BARROS present. breathing labored/ agonal breathing, face dusky, fio2 increased to 40%, suctioned pale yellow secretions, sedation- fentanyl restarted and repositioned for comfort. with interventions, resp improved. Dr. Ghosh present shortly thereafter. initiated consult for neurology and ct head ordered. Dr. Romeo notified of consult, updated on pt status. Dr. Dowell returned call. updated on pt status. ct head pending.
--- NOTE | 2020-08-11 13:26 | NUR ---
chart review, remains on vent, nutritional support. discussed during am unite rounds. new neuro consult. cm called daughter ahmet, no answer, left message requesting call back.
--- NOTE | 2020-08-11 14:15 | NUR ---
>>>>>>>> [address] OF HEAD, ON ANIMAL SITTER PER ICU BED WITH ART, RT FOR VENT MANAGEMENT. 1415 RETURNED TO ICU POST CT. WELL TOLERATED.
--- NOTE | 2020-08-11 16:30 | NUR ---
in afternoon, Claudia Douglass, daughter was present. updated on pt from this am, when his resp were agonal/labored, sa2 down to 89%, change in complexion. informed of pt having ct of head to rule out potential bleed and consult to Dr. Romeo, neurology. questions answered to satisfaction.
--- NOTE | 2020-08-11 18:30 | NUR ---
pt not progressing based on neuro status- opening eyes spontaneously, not following any commands, does respond to deep pain. minimal sedation- fentanyl iv gtt intermittently for pain. EEG completed per Dr. Romeo.
[2020-08-12] VITALS (25 sets, daily range): BP systolic 97–152; BP diastolic 50–92
[2020-08-12 04:50] LABS: HEMATOCRIT 31.6 % (42.0-52.0); MCH 31.9 pg (26.0-34.0); MCHC 31.7 g/dL (28.0-37.0); MCV 100.6 fL (80.0-100.0); RBC 3.14 mil/uL (4.50-6.00); WBC 6.9 thou/uL (4.0-11.0)
[2020-08-12 05:21] LABS: CALCIUM 8.6 mg/dL (8.5-10.1); MAGNESIUM 2.2 mg/dL (1.8-2.4); POTASSIUM 3.6 mmol/L (3.5-5.1)
--- NOTE | 2020-08-12 19:46 | NUR ---
Bailey, daughter called in am. given update regarding pt generally not progressing, fi02 generally increasing related to pt's oxygen requirements. minimally responsive. this afternoon, Claudia Douglass daughter present. updated on pt status, minimally responsive, opening eyes but not tracking, movement of upper extremities to command, continuing to increase fio2 on vent- currently 100%. paged Dr. Romeo and he came to see Claudia. paged Dr. Eliceo Bond- no return call. pt not progressing.
[2020-08-13] VITALS (24 sets, daily range): BP systolic 92–150; BP diastolic 47–86
--- NOTE | 2020-08-13 07:04 | EKG ---
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1940 Requested By: Matteo Ghosh Order Number: [id number] MD: Inocencio Ruggiero Measurements Intervals [place] Rate: 91 P: DC: QRS: 261 QRSD: 168 T: 59 QT: 506 QTc: 623 Interpretive Statements Atrial fibrillation Nonspecific IVCD with LAD Compared to ECG 08/05/2020 18:00:04 Intraventricular conduction delay now present Sinus rhythm no longer present Right bundle-branch block no longer present Electronically Signed On 08-13-2020 7:04:06 CDT by Inocencio Ruggiero [email or web address] <ELECTRONICALLY SIGNED> By: Inocencio Ruggiero MD, [facility] 08/13/20 0704 1149 1149 Inocencio Ruggiero MD, [facility] /EPI
[2020-08-13 08:36] LABS: CALCIUM 8.7 mg/dL (8.5-10.1); POTASSIUM 3.6 mmol/L (3.5-5.1)
--- NOTE | 2020-08-13 08:59 | 2DMMODE ---
[address] [place] [address] 2 D/M-MODE ECHOCARDIOGRAM Name: JAYSON PATEL Willem Room #: 240-P ADM IN M.R.#: [id number] Admission: 08/05/20 Attend Phys: Sekou Hobbs MD Discharge: Date of : 38 Report #: [id number] THIS REPORT FOR: cc: Vidal Velez James DO Lammoglia, Francisco J. MD ~ APPROVED REPORT Study performed: 08/12/2020 13:22:59 EXAM: Comprehensive 2D, Doppler, and color-flow Echocardiogram Patient Location: ICU Room #: 240 Status: routine BSA: 2.17 HR: 81 bpm BP: 140/85 mmHg Rhythm: Pacemaker Other Information Study Quality: Adequate Technically limited study due to lung disease, patient on ventilator, inability to position patient. Indications Dyspnea Respiratory failure 2D Dimensions IVC: 23.00 mm Tricuspid Valve TR Peak [place]w.: 3.85 m/s TR Peak Gr.: 59.28 mmHg PA Pressure: 69.00 mmHg Left Ventricle The left ventricle is normal size. There is normal LV segmental wall motion. There is normal left ventricular wall thickness. The left ventricular systolic function is normal. The left ventricular ejection fraction is within the normal range. LVEF is 55-60%. This study is not technically sufficient to allow evaluation of the LV diastolic function. [address] [place] [address] 2 D/M-MODE ECHOCARDIOGRAM Name: AMANDAJAYSON D Room #: 240-P ADM IN [facility]#: [id number] Admission: 08/05/20 Attend Phys: Myke Small Discharge: Date of : 38 Report #: [id number] Right Ventricle Right ventricle is at the upper limits of normal. Right ventricular systolic function is borderline normal. Pacemaker lead is present in the right ventricle. Atria The left atrium size is normal. Right atrium is mildly dilated. Aortic Valve The aortic valve is normal in structure. No aortic regurgitation is present. Mitral Valve The mitral valve is normal in structure. Mild mitral regurgitation. No evidence of mitral valve stenosis. Tricuspid Valve The tricuspid valve is normal in structure. There is mild tricuspid regurgitation. Estimated PAP 69 mmHg. There is moderate-severe pulmonary hypertension. Pulmonic Valve Pulmonic valve is not well visualized. Great Vessels The aortic root is normal in size. IVC is dilated and collapses <50% with inspiration. Pericardium There is no pericardial effusion. <Conclusion> The left ventricle is normal size. There is normal left ventricular wall thickness. LVEF is 55-60%. Right ventricular systolic function is borderline normal. Pacemaker lead is present in the right ventricle. Right atrium is mildly dilated. The aortic valve is normal in structure. The mitral valve is normal in structure. Mild mitral regurgitation. The tricuspid valve is normal in structure. There is mild tricuspid regurgitation. Estimated PAP 69 mmHg. There is moderate-severe pulmonary hypertension. Pulmonic valve is not well visualized. [facility] [address] [place] [address] 2 D/M-MODE ECHOCARDIOGRAM Name: JAYSON PATEL Room #: 240-P ADM IN .R.#: [id number] Admission: 08/05/20 Attend Phys: Myke Small Discharge: Date of : 38 Report #: [id number] The aortic root is normal in size. There is no pericardial effusion. <ELECTRONICALLY SIGNED> By: Ismael Arredondo MD 08/13/2059 8 8 Ismael Arredondo MD /INF
--- NOTE | 2020-08-13 16:31 | NUR ---
VAT CONSULTED FOR CVAD. PT VERY DYSPNEIC, SATS DROP WHEN HOB LOWERED. UNABLE TO SAFELY POSITION PT, SO 2 ADDITIONAL PIV'S STARTED. CALIXTO RN NOTIFIED. RESPIRATIONS RAPID AND MOIST COUGH NOTED
--- NOTE | 2020-08-13 21:53 | NUR ---
ASSUMED CARE OF PATIENT AT 1900. BLOOD NOTED IN ET TUBE DESCRIBED IN REPORT BY DAY SHIFT. Lamar CAMPOVERDE NOTIFIED, ORDERS RECIEVED TO HOLD HEPARIN GTT.
[2020-08-14] VITALS (129 sets, daily range): BP systolic 57–153; BP diastolic 30–85
[2020-08-14 04:12] LABS: BE(vivo) 1.3 mmol/L (-2 to +3); HCO3 27.2 mmol/L (22.0-26.0); PCO2 48.5 mmHg (35.0-45.0); PO2 74.2 mmHg (80.0-100.0); pH 7.366 (7.360-7.450); sO2 94.3 % (92.0-98.0)
[2020-08-14 05:42] LABS: HEMATOCRIT 28.2 % (42.0-52.0); HEMOGLOBIN 9.1 gm/dL (14.0-18.0); MCH 32.5 pg (26.0-34.0); MCHC 32.4 g/dL (28.0-37.0); MCV 100.1 fL (80.0-100.0); RBC 2.82 mil/uL (4.50-6.00); RDW 18.1 % (10.5-14.5); WBC 6.7 thou/uL (4.0-11.0)
[2020-08-14 06:17] LABS: CALCIUM 8.5 mg/dL (8.5-10.1); POTASSIUM 3.5 mmol/L (3.5-5.1)
--- NOTE | 2020-08-14 09:15 | NUR ---
WOUND CARE F/U; REMAINS ON VENT, ASSESSED SACRAL WOUND W/ LUMPIA WRAPPER MAKER KAITLYN, WOUND STABLE, NO S/S INFECTION, SCANT SEROUS PINK DRAINAGE, SACRAL FOAM DRSG REAPPLIED, REMAINS ON ICU PRESSURE RELIEF MATTRESS, PRAFO BOOTS ON, SEE PROCESS INTERVENTION FOR WOUND DETAILS RECOMMENDATIONS; SACRAL FOAM DRSG, Z GUARD PRN, TURN [id number], PRESSURE RELIEF, OFF LOADING LUMPIA WRAPPER MAKER AWARE
[2020-08-14 12:09] LABS: BE(vivo) 2.8 mmol/L (-2 to +3); HCO3 29.3 mmol/L (22.0-26.0); PCO2 54.3 mmHg (35.0-45.0); PO2 78.3 mmHg (80.0-100.0); sO2 94.8 % (92.0-98.0)
[2020-08-14 12:10] LABS: MCH 32.2 pg (26.0-34.0); MCHC 32.3 g/dL (28.0-37.0); MCV 99.7 fL (80.0-100.0); RBC 3.11 mil/uL (4.50-6.00); RDW 18.5 % (10.5-14.5); WBC 6.7 thou/uL (4.0-11.0)
[2020-08-14 12:17] LABS: CALCIUM 8.4 mg/dL (8.5-10.1); CREATININE 1.2 mg/dL (0.7-1.3); POTASSIUM 3.5 mmol/L (3.5-5.1)
[2020-08-14 12:26] LABS: TROPONIN-I 0.42 ng/mL (<0.06)
--- NOTE | 2020-08-14 14:02 | NUR ---
chart review. discussed during am rounds. cm spoke with damián leo who voice that "family all agree, if his heart stops don't bring him back, his quality of life as hard as that is to say. we live over [place] and i [place]'t drive in the city so will be up on tuesday to see him. please call anytime if anything changes"/damián leo [phone]. no anticipated dc over the weekend. passed on information to bedside nurse. will cont following as needed for dc needs. he had change in bp and needing bp support. cm passed on to pulmonary to call damián leo.
--- NOTE | 2020-08-14 18:28 | NUR ---
ASSUMED CARE AT 0700, ASSESSMENT AND VITAL SIGNS COMPLETED PER ICU PROTOCOL. FAMILY FACETIMED AT 17:50 WITH PT. FAIZA PARNELL CALLED RN FOR AN UPDATE THIS MORNING, SECURITY CODE PROVIDED. ELAINE HAYES CALLED RN FOR AN UPDATE, SECURITY CODE PROVIDED.
[2020-08-15] VITALS (90 sets, daily range): BP systolic 61–142; BP diastolic 34–86
[2020-08-15 04:20] LABS: BE(vivo) 3.4 mmol/L (-2 to +3); HCO3 29.1 mmol/L (22.0-26.0); PCO2 49.5 mmHg (35.0-45.0); pH 7.387 (7.360-7.450); sO2 95.1 % (92.0-98.0)
[2020-08-15 05:10] LABS: CALCIUM 8.6 mg/dL (8.5-10.1); CREATININE 1.1 mg/dL (0.7-1.3); POTASSIUM 3.4 mmol/L (3.5-5.1)
[2020-08-15 05:14] LABS: HEMATOCRIT 31.5 % (42.0-52.0); HEMOGLOBIN 10.1 gm/dL (14.0-18.0); MCH 31.9 pg (26.0-34.0); MCHC 32.1 g/dL (28.0-37.0); MCV 99.3 fL (80.0-100.0); RBC 3.17 mil/uL (4.50-6.00); RDW 18.5 % (10.5-14.5)
--- NOTE | 2020-08-15 07:50 | EKG ---
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1940 Requested By: Matteo Ghosh Order Number: [id number] MD: Jermain Montalvo Measurements Intervals [place] Rate: 81 P: 52 [place]: 118 QRS: -115 QRSD: 155 T: 48 QT: 465 QTc: 540 Interpretive Statements Sinus rhythm with possible intermittent ventricular pacing Atrial premature complex Borderline short [place] interval Nonspecific intraventricular conduction delay Compared to ECG 08/12/2020 11:49:48 Atrial premature complex(es) now present Electronically Signed On 08-15-2020 7:50:39 CDT by Jermain Montalvo [email or web address] <ELECTRONICALLY SIGNED> By: Jermain Montalvo MD, [facility] 08/15/20 0750 1144 1144 Jermain Montalvo MD, [facility] /EPI
--- NOTE | 2020-08-15 11:05 | NUR ---
chart review. remains on vent, tf for nutritional support. discussed during los, family going to come in today and possible comfort extubate. discussed during am rounds, family going to bring his in later today and make decision. will cont following as needed for dc needs.
--- NOTE | 2020-08-15 16:57 | EKG ---
[address] [address] ELECTROCARDIOGRAM REPORT Name: JAYSON PATEL Room #: 240-P ADM IN M.R.#: [id number] Admission: 08/05/20 Attend Phys: eSkou Hobbs MD Discharge: Date of : 38 Report #: [id number] 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 : 1940 Requested By: Matteo Ghosh Order Number: [id number] MD: Jermain Montalvo Measurements Intervals [place] Rate: 88 P: [place]: QRS: -102 QRSD: 142 T: 38 QT: 488 QTc: 591 Interpretive Statements Atrial fibrillation with intermittent ventricular pacing Nonspecific intraventricular conduction delay Compared to ECG 08/14/2020 11:44:08 No significant change was found Electronically Signed On 08-15-2020 16:57:28 CDT by Jermain Montalvo [email or web address] <ELECTRONICALLY SIGNED> By: Jermain Montalvo MD, [facility] 08/15/20 1657 1227 26 Jermain Montalvo MD, [facility] /EPI
--- NOTE | 2020-08-15 19:04 | NUR ---
pt following commnads moving all extremities on light sedation throughout day. While CPAP tiraling pt developed abnormal arrhythmia w/unsustained VTACH. Cardiology notified, amio increased for 18hrs per Casandra. family at bedisde in am. updated regarding pt status/plan of care... Per Dr. RABAGO plans for family to make palliative decison tuesday. overall progressing in plan of care today.
[2020-08-16] VITALS (70 sets, daily range): BP systolic 65–129; BP diastolic 38–85
--- NOTE | 2020-08-16 03:53 | NUR ---
ASSUMED CARE OF PATIENT AT 1900. BP REMAINS UNSTABLE, LEVO GTT TITRATED UP. CONTINUES TO WAKE EASILY, FOLLOW SOME COMMANDS. DENIES PAIN. DAUGHTER FAIZA UPDATED AT 2100. NOT PROGRESSING TOWARDS POC GOALS.
[2020-08-16 04:14] LABS: CALCIUM 8.4 mg/dL (8.5-10.1); CREATININE 1.2 mg/dL (0.7-1.3); MAGNESIUM 1.9 mg/dL (1.8-2.4); POTASSIUM 3.1 mmol/L (3.5-5.1)
[2020-08-16 04:39] LABS: HEMATOCRIT 32.1 % (42.0-52.0); HEMOGLOBIN 10.4 gm/dL (14.0-18.0); MCHC 32.5 g/dL (28.0-37.0); MCV 98.5 fL (80.0-100.0); RBC 3.26 mil/uL (4.50-6.00); RDW 18.1 % (10.5-14.5); WBC 8.3 thou/uL (4.0-11.0)
[2020-08-16 07:44] LABS: BE(vivo) 8.2 mmol/L (-2 to +3); HCO3 33.6 mmol/L (22.0-26.0); PCO2 50.5 mmHg (35.0-45.0); PO2 63.4 mmHg (80.0-100.0); pH 7.441 (7.360-7.450); sO2 92.7 % (92.0-98.0)
--- NOTE | 2020-08-16 13:35 | NUR ---
PATIENT WAS ON THE VENT AND CPAP CONDUCTED THIS MORNING AND ABG OBTAINED AND ORDERS TO EXTUBATE OBTAINED WHEN DR. RABAGO ROUNDED. PATIENT WAS EXTUBATED AT 1105 BY RT ROX. DAUGHTER FAIZA UPDATED A COUPLE OF TIME AND INFORMED SINCE SHE IS THE POINT OF CONTACT SHE WOULD BE UPDATED AND WOULD UPDATE EVERONE ELSE AND WAS AGREEABLE TO THIS. LATER ANOTHER FAMILY MEMBER CALLED REQUESTING FOR RN TO VIDEO CHAT WITH PATIENT, SHE WAS INFORMED THAT SINCE PATIENT IS NOT IN ISOLATION AND OUR NORMAL VISITING HOURS HAVE RESUMED, SHE COULD COME AND VISIT. SHE SOUNDED UPSET AND ASKED WHEN THE NEXT SHIFT WOULD BE COMING IN, I INFORMED HER WE DO SHIFT CHANGE BETWEEN 6-8PM AND CLOSED AT THAT TIME, SHE HUNG UP THE PHONE.
[2020-08-17] VITALS (83 sets, daily range): BP systolic 72–137; BP diastolic 33–73
--- NOTE | 2020-08-17 01:01 | NUR ---
Pt keeps desaturating to 88-89% despite being suctioned and O2 increased to 12 L HFC. Pt encouraged to deep breathe and cough, sputum very thick and blood tinged. Respiratory therapy paged to give pt breathing treatment.
--- NOTE | 2020-08-17 01:27 | NUR ---
Pt responded well to breathing treatment given with percussion and vibration. Remains on 12 L HFC but sat is up to 96%.
--- NOTE | 2020-08-17 01:40 | NUR ---
Pt's 0100 PTT is therapeutic at 53.5. No changes made to heparin gtt. [facility] Will schedule next PTT for 0600.
--- NOTE | 2020-08-17 04:43 | NUR ---
Pt has intermittent periods of desaturating down to 85-86%. Sometimes able to clear thick mucous from oropharynx or get pt to cough deeply enough to remove thick blood tinged sputum. Pt has been on 12 L HFC most of night, however at 0445, pt desaturated to 86% and did not respond to suctioning or repositioning. Lateral rotation discontinued and O2 increased to 15 L HFC. O2 sat now 92-93%.
[2020-08-17 05:54] LABS: HEMATOCRIT 30.4 % (42.0-52.0); HEMOGLOBIN 10.2 gm/dL (14.0-18.0); MCH 32.7 pg (26.0-34.0); MCHC 33.5 g/dL (28.0-37.0); MCV 97.7 fL (80.0-100.0); RBC 3.11 mil/uL (4.50-6.00); RDW 18.5 % (10.5-14.5); WBC 7.2 thou/uL (4.0-11.0)
[2020-08-17 06:02] LABS: CALCIUM 8.2 mg/dL (8.5-10.1); CREATININE 1.1 mg/dL (0.7-1.3); POTASSIUM 3.2 mmol/L (3.5-5.1)
--- NOTE | 2020-08-17 06:24 | NUR ---
HEPARIN PROTOCOL: PTT 41.1 (sub therapeutic); pt given 2300 unit bolus of heparin and then heparin gtt increased by 2 units/kg/hr. Next PTT to be drawn at 1230. ELECTROLYTE PROTOCOL: pt's potassium = 3.2. KCl replaced per protocol.
--- NOTE | 2020-08-17 10:16 | NUR ---
ASSUMED CARE AT 0700, ASSESSMENT AND VITAL SIGNS COMPLETED PER ICU PROTOCOL. DR. RABAGO PAGED AND NOTIFIED OF INCREASED OXYGEN DEMANDS OVERNIGHT, NEW ORDERS RECEIVED.
--- NOTE | 2020-08-17 17:12 | NUR ---
ASSUMED CARE OF PT AT 1445, PT PLACED ON OPTIFLO DUE TO HIGHER OXYGEN NEEDS.
[2020-08-18] VITALS (37 sets, daily range): BP systolic 95–134; BP diastolic 38–71
--- NOTE | 2020-08-18 06:00 | NUR ---
AWAKE AND ALERT FOLLOWS COMMANDS. REMAINS ON OPTIFLOW AT 60 % LUNGS DIM BILAT. REMAINS A DNR. UO 1300 CC THIS SHIFT. PROGRESSING TOWARD GOALS
[2020-08-18 06:02] LABS: HEMATOCRIT 30.9 % (42.0-52.0); MCH 31.9 pg (26.0-34.0); MCHC 32.5 g/dL (28.0-37.0); MCV 98.3 fL (80.0-100.0); RBC 3.15 mil/uL (4.50-6.00); RDW 18.4 % (10.5-14.5)
[2020-08-18 06:19] LABS: CALCIUM 8.3 mg/dL (8.5-10.1); POTASSIUM 3.5 mmol/L (3.5-5.1)
--- NOTE | 2020-08-18 09:00 | NUR ---
ASSUMMED CARE OF THIS PATIENT FROM THE NIGHT NURSE, SHALONDA AT 0700. PATIETNT REPOITIONED AND ASSESSED. REMAINS ON LEVOPHED FOR HYPOTENSION. BEDSIDE SWALLOW STUDY DONE, PATIENT COUGHING ON CONSERATIVE MEASURES PER SPEECH. PATIENT REMAINS NPO.
--- NOTE | 2020-08-18 10:40 | NUR ---
VIDEO ZOOM MEETING WITH FAMILY. UPDATED PATIENT'S DAUGHTER FAIZA PRIOR TO ZOOM MEETING ON PATIENT STATUS.
--- NOTE | 2020-08-18 11:15 | NUR ---
chart review. discussed during los and am rounds. he was extubated over the weekend and requiring optflow o2, had swallow eval, did not pass. going to start some ng for nutritional support. family been up over the weekend and have been talking with nurse and MD. will cont following as needed for dc needs.
--- NOTE | 2020-08-18 14:28 | NUR ---
DOBB LEANNE INSERTED VIA LEFT NARE WITHOUT INCIDENT. PORTABLE KUB OBTAINE AND TUBE FEEDING STARTED ONCE PLACEMENT CONFIRMED BY RADIOLOGIST.
--- NOTE | 2020-08-18 16:30 | NUR ---
PATIENT PULLED OFF O2 AND PULLED OUT DOBHOFF TUBE. TUBE FEEDING PLACED ON HOLD. DOBHOFF TUBE INSERTED AND PATIENT UNCOOPERATIVE WITH THE PROCEDURE. DAUGHTER IN AND REASSURACE GIVEN AND PATIENT LESS AGGITATED WITH HER VISIT. DAUGHTER UPDATED ON THE PATIENT'S STATUS AND THE NEED FOR NUTRITION. KUB OF ABD DONE BY HARNESS MAKER. WILL AWAIT READING TO RESUME TUBE FEEDINGS.
--- NOTE | 2020-08-18 19:59 | NUR ---
PATIENT IS PROGRESSING TOWARD OUTCOME GOALS ABLE TO WEAN O2 DOWN ON THE AIRVO TODAY. WILL CONTINUE TO MONITOR
--- NOTE | 2020-08-18 22:00 | NUR ---
NOTED DOBB LEANNE FEEDING TUBE HAD SLIPPED OUT TO 25 CM. REMOVED AND REPLACED WITH # 8 LOLIS PERDOMO.
[2020-08-19] VITALS (48 sets, daily range): BP systolic 76–145; BP diastolic 39–91
[2020-08-19 05:22] LABS: CALCIUM 8.3 mg/dL (8.5-10.1); CREATININE 0.9 mg/dL (0.7-1.3); POTASSIUM 3.3 mmol/L (3.5-5.1)
--- NOTE | 2020-08-19 06:00 | NUR ---
PT HAS RESTED QUIETLY ALL NIGHT. REMAINS ON OPTIFLOW 50 LITER 62 % O2 O2 SAT 92 % LEVOPHED GTT TITRATED TO 1 MCG. 1200 UO THIS SHIFT. WILL CONT TO MONITOR. PROGRESSING TOWARD GOAL. REMAINS A DNR.
--- NOTE | 2020-08-19 11:03 | NUR ---
WOUND CARE F/U; THE WOUND WAS VISULAIZED BRIEFLY. THE PATIENT WAS ALERTS AND ANGRY. THERE IS NO S/S OF INFECTION. ZGUARD WAS APPLIED TO THIS AREA. DISCUSSED WITH JENNIFER
--- NOTE | 2020-08-19 20:48 | NUR ---
Spoke to Bailey (daughter) and gave update. No significant changes.
[2020-08-20] VITALS (42 sets, daily range): BP systolic 87–140; BP diastolic 40–75
[2020-08-20 11:03] LABS: CALCIUM 8.3 mg/dL (8.5-10.1); POTASSIUM 3.5 mmol/L (3.5-5.1)
[2020-08-21] VITALS (23 sets, daily range): BP systolic 88–126; BP diastolic 39–90
[2020-08-21 06:59] LABS: HEMATOCRIT 30.8 % (42.0-52.0); MCH 31.7 pg (26.0-34.0); MCHC 32.5 g/dL (28.0-37.0); MCV 97.5 fL (80.0-100.0); RBC 3.16 mil/uL (4.50-6.00); RDW 18.5 % (10.5-14.5)
[2020-08-21 07:07] LABS: CALCIUM 8.2 mg/dL (8.5-10.1); CREATININE 0.9 mg/dL (0.7-1.3); POTASSIUM 3.4 mmol/L (3.5-5.1)
--- NOTE | 2020-08-21 10:29 | NUR ---
TF UP TO GOAL EARLIER. MAINT IVF TO 20ML/HR & STEPHAN CK W PRIMARY. PT DID WELL W BREAKFAST. TITATING OPTIFLOW, WILL TRY HI KAMINI N.C.--VW
--- NOTE | 2020-08-21 10:34 | NUR ---
WOUND CARE F/U; THE WOUND AND THE PATIENTS CONDITION IS IMPROVING. THE WOUND IS 50% SMALLER. NO S/S OF INFECTIONS. NO C/O PAIN. BEEFY RED WOUND BED. THE PATIENT WAS PLEASANT AND COOPERATIVE. NO NEW SKIN ISSUES IDENTIFIED. RECOMMENDATIONS; CONTINUE POC RN PRESENT AND ASSISTING WITH ASSESSSMENT.
--- NOTE | 2020-08-21 11:14 | NUR ---
discussed during am rounds and los. cm called damián arcos to clarity which daughter piero possible go to go home with when dc and if going on hospice . " yes he will be going back to [place] with sister ahmet, at her house, and will help him, possible hospice. if need dc question when he is ready can talk with ahmet as well since he going to her home in [place] where he lives too"/damián arcos. cm checking to see when dc ready for dc. piero is still on dobbhuff tube feeds, not toleration po diet or medications. still requiring optflow o2. will cont following as needed for dc needs.
--- NOTE | 2020-08-21 19:30 | NUR ---
family member inquired today regarding pt status. updated family on pt status, cough, congestion with non productive cough. worse when taking po. tolerates meds with applesauce or pudding.
[2020-08-22] VITALS: BP 150/68
--- NOTE | 2020-08-22 04:43 | NUR ---
Patient down to high flow cannula at 8L and tolerating well. VSS, adequate urine output. No significant events over night. Tolerating tube feedings. Overall not progressing towards [facility] goals.
[2020-08-22 08:00] VITALS: BP 97/49
--- NOTE | 2020-08-22 09:08 | PATH ---
[facility] [address] [place] [address] PATHOLOGY RPT PROCEDURE Name: JAYSON PATEL Room #: 242-P ADM IN [facility]#: [id number] Admission: 08/05/20 Date of : 38 Discharge: Report #: [id number] Path Case #: [id number] Note [facility] Accession Number: [id number] TESTS RESULT FLAG UNITS REF RANGE LAB Clinician Provided Cytology Information No. of containers..01 Other (Miscellaneous) Source: ANAHI WASH DIAGNOSIS: 02 ANAHI WASH INCONCLUSIVE. PULMONARY MACROPHAGES (DUST CELLS) ARE PRESENT. RARE MARKEDLY ENLARGED ATYPICAL BRONCHIAL EPITHELIAL CELL IDENTIFIED. BACKGROUND OF SQUAMOUS EPITHELIAL CELLS, BRONCHIAL EPITHELIAL CELLS, MACROPHAGES AND INFLAMMATORY CELLS. Pathologist ICD10: 02 A41.9 Signed out by: 02 Blank Saldana MD, Pathologist NPI- [id number] Performed by: Bobbi Trevizo, Steam Locomotive Firer/Fireman ([facility]) Gross description: 01 28ML, RED, 1TP /LCS 08/20/2020 0156 Local FLAG LEGEND: L-Low Normal,H-High Normal,LL-Alert Low,HH-Alert High <-Panic Low,>-Panic High,A-Abnormal,AA-Critical Abnormal Performed at: 01 [facility] [address] [place] [address] Osman Pfeiffer MD, [address] [address] Blank Saldana MD, Specimen Comment: A courtesy copy of this report has been sent to [phone] Specimen Comment: [phone], Specimen Comment: Report sent to DR RABAGO,DR CONTRERAS / DR LAL Specimen Comment: A duplicate report has been generated due to demographic updates. Performed at: 01 [facility] [address] [place] [address] PATHOLOGY RPT PROCEDURE Name: JAYSON PATEL Room #: 242-P [facility] IN .R.#: [id number] Admission: 08/05/20 Date of : 38 Discharge: Report #: [id number] Path Case #: [id number] [address], [place], [place] [id number] MD Osman Pfeiffer MD Phone: [phone]
--- NOTE | 2020-08-22 09:08 | PATH ---
[facility] [address] [place] [address] PATHOLOGY RPT PROCEDURE Name: JAYSON PATEL Room #: 242-P ADM IN [facility]#: [id number] Admission: 08/05/20 Date of : 38 Discharge: Report #: [id number] Path Case #: [id number] Note [facility] Accession Number: [id number] TESTS RESULT FLAG UNITS REF RANGE LAB Clinician Provided Cytology Information No. of containers..01 Other (Miscellaneous) Source: LLL WASH DIAGNOSIS: LLL WASH NEGATIVE FOR MALIGNANT EPITHELIAL CELLS. REACTIVE BRONCHIAL CELLS ARE PRESENT. PULMONARY MACROPHAGES (DUST CELLS) ARE PRESENT. Pathologist ICD10: 02 A41.9 Signed out by: 02 Blank Saldana MD, Pathologist NPI- [id number] Performed by: Carisa Epstein Tram Inspector ([facility]) Gross description: 01 22ML, ELVIA, ELLA /BLANK 08/20/2020 0158 Local FLAG LEGEND: L-Low Normal,H-High Normal,LL-Alert Low,HH-Alert High <-Panic Low,>-Panic High,A-Abnormal,AA-Critical Abnormal Performed at: [address] [place] [address] Osman Pfeiffer MD, [address] [address] Blank Saldana MD, Specimen Comment: A courtesy copy of this report has been sent to [phone], [phone] Specimen Comment: [phone], Specimen Comment: Report sent to DR RABAGO,DR CONTRERAS / DR LAL Specimen Comment: A duplicate report has been generated due to demographic updates. Performed at: [address], [place], [place] [id number] MD Osman Pfeiffer MD Phone: [phone]
--- NOTE | 2020-08-22 11:09 | NUR ---
Bailey- daughter called to inquire regarding pt status. rn unable to take call. Call returned, message left regarding pt's temporary improvement. 02 down to 5L/nc, tolerates thick consistency like pudding, coughs with nectar thick consistency.
[2020-08-22 12:00] VITALS: BP 92/50
--- NOTE | 2020-08-22 14:01 | NUR ---
discussed during los, spoke with daughter ahmet who wanted cm to tell her dad he coming home today or tomorrow. discussed hospice, referral sent to [facility], they will reach out to family, piero will go home to his house with and [facility] hospice. dme will be set up by hospice.
[2020-08-22 16:01] VITALS: BP 111/58
--- NOTE | 2020-08-22 18:30 | NUR ---
PT STATED, "THIS IS THE BEST DAY EVER (FAMILY FACE TIMED AND FAMILY PRESENT IN PERSON TO VISIT). I'M GOING HOME TOMORROW. THIS IS THE WAY IT SHOULD BE." WINNIE, CASE MANAGEMENT COORDINATED WITH FAMILY FOR PT TO GO HOME WITH HOSPICE IN AM. PT PROGRESSING TOWARD DISCHARGE TO HOME WITH HOSPICE.
[2020-08-22 20:01] VITALS: BP 127/73
[2020-08-22 21:15] VITALS: BP 125/71
--- NOTE | 2020-08-22 22:10 | NUR ---
pt transferred from ICU to CCU at approx 2130. he is calm and cooperative. denies pain. he was requesting to talk to his dheeraj. but she did not answer so, he will speak in the morning.
--- NOTE | 2020-08-23 00:14 | NUR ---
pt report from icu tonight at time of transfer to ccu. pt was not tolerating the ng tune feedings. he did not want the ng tube. ICU allowed pt his right to refuse.
--- NOTE | 2020-08-23 02:54 | NUR ---
PT CONTINUES ON NRB MASK TONIGHT. SPOKE WITH HIS DAUGHTER MAGEN. SHE WAS CHECKING IN ON HER DAD JUST TO MAKE SURE HE IS BEING CHECKED ON. SHE AGREES THAT THE PLAN IS THAT HE WILL GO HOME WITH HOSPICE 08/23.
[2020-08-23 04:45] VITALS: BP 114/72
[2020-08-23 08:40] VITALS: BP 121/74
[2020-08-23] MEDS ORDERED: PACERONE 200 M200 M1 PO (09:53)
--- NOTE | 2020-08-23 10:39 | NUR ---
PT LEFT WITH [facility] TO TRANSFER HOME WITH HOSPICE, PT VS STABLE AND ON 15 L NON REBREATHER, PT IS READY TO GO HOME. HOSPICE [facility] CALLED AND NOTIFIED OF ETA.
== END 2020-08-23 10:46 | disposition hospice, home (50) | DRG 870 ==
LOC: ICU 14:48 → 2N 08-22 21:23
PROVIDERS: Hospitalist; Internal Medicine; Internal Medicine Pulmonary Disease; Nurse Practitioner; Pediatrics; ADMIT Hospitalist; ATTEND Hospitalist
PROC: 05HY33Z Insertion of Infusion Device into Upper Vein, Percutaneous Approach (ICD-10-PCS; principal; 2020-08-05)
PROC: 0BH17EZ Insertion of Endotracheal Airway into Trachea, Via Natural or Artificial Opening (ICD-10-PCS; principal; 2020-08-05)
PROC: 5A1955Z Respiratory Ventilation, Greater than 96 Consecutive Hours (ICD-10-PCS; principal; 2020-08-05)
PROC: 03HY32Z Insertion of Monitoring Device into Upper Artery, Percutaneous Approach (ICD-10-PCS; principal; 2020-08-05)
PROC: 5A09357 Assistance with Respiratory Ventilation, Less than 24 Consecutive Hours, Continuous Positive Airway Pressure (ICD-10-PCS; principal; 2020-08-05)
PROC: 4B02XSZ Measurement of Cardiac Pacemaker, External Approach (ICD-10-PCS; 2020-08-06)
PROC: 5A0955A Assistance with Respiratory Ventilation, Greater than 96 Consecutive Hours, High Flow/Velocity Cannula (ICD-10-PCS; 2020-08-16)
PROC: 0DH67UZ Insertion of Feeding Device into Stomach, Via Natural or Artificial Opening (ICD-10-PCS; 2020-08-18)
PROC: 0DH67UZ Insertion of Feeding Device into Stomach, Via Natural or Artificial Opening (ICD-10-PCS; 2020-08-19)
PROC: 0B9J8ZZ Drainage of Left Lower Lung Lobe, Via Natural or Artificial Opening Endoscopic (ICD-10-PCS; 2020-08-19)
DX: A41.9 Sepsis, unspecified organism (principal); R65.21 Severe sepsis with septic shock; I26.99 Other pulmonary embolism without acute cor pulmonale; N17.0 Acute kidney failure with tubular necrosis; G92 Toxic encephalopathy; J69.0 Pneumonitis due to inhalation of food and vomit; J96.21 Acute and chronic respiratory failure with hypoxia; I50.31 Acute diastolic (congestive) heart failure; R57.0 Cardiogenic shock; E43 Unspecified severe protein-calorie malnutrition; I21.4 Non-ST elevation (NSTEMI) myocardial infarction; J15.8 Pneumonia due to other specified bacteria; J44.1 Chronic obstructive pulmonary disease with (acute) exacerbation; E87.2 Acidosis; I13.0 Hypertensive heart and chronic kidney disease with heart failure and stage 1 through stage 4 chronic kidney disease, or unspecified chronic kidney disease; E87.1 Hypo-osmolality and hyponatremia; T17.590A Other foreign object in bronchus causing asphyxiation, initial encounter; J98.11 Atelectasis; I82.431 Acute embolism and thrombosis of right popliteal vein; I25.10 Atherosclerotic heart disease of native coronary artery without angina pectoris; K21.9 Gastro-esophageal reflux disease without esophagitis; F32.9 Major depressive disorder, single episode, unspecified; F17.210 Nicotine dependence, cigarettes, uncomplicated; I95.9 Hypotension, unspecified; I48.0 Paroxysmal atrial fibrillation; N18.30 Chronic kidney disease, stage 3 unspecified; R53.81 Other malaise; R63.4 Abnormal weight loss; E78.00 Pure hypercholesterolemia, unspecified; E87.6 Hypokalemia; I71.4 Abdominal aortic aneurysm, without rupture; E11.22 Type 2 diabetes mellitus with diabetic chronic kidney disease; Z66 Do not resuscitate; R91.1 Solitary pulmonary nodule; R13.10 Dysphagia, unspecified; D64.9 Anemia, unspecified; X58.XXXA Exposure to other specified factors, initial encounter; Z88.6 Allergy status to analgesic agent; Z88.0 Allergy status to penicillin; Z88.8 Allergy status to other drugs, medicaments and biological substances; Z79.4 Long term (current) use of insulin; Z95.0 Presence of cardiac pacemaker; Z86.73 Personal history of transient ischemic attack (TIA), and cerebral infarction without residual deficits; Z68.26 Body mass index [BMI] 26.0-26.9, adult; Z95.5 Presence of coronary angioplasty implant and graft; Y93.89 Activity, other specified; Y92.89 Other specified places as the place of occurrence of the external cause; Y99.8 Other external cause status
CPT/HCPCS: 10078; 10081; 10203; 50455; 65040